=== PATIENT | female | born 1985 | race African-American/Black ===

== ENCOUNTER 2022-10-17 06:02 | Emergency (ER) | payer MEDICAID ==
[~2022-10-17] VITALS: Ht 165.1 cm; Wt 70.0 kg
[2022-10-17 06:40] LABS: BASOPHILS % 0.4 % (0.0-2.0); EOSINOPHILS % 0.5 % (0.0-5.0); HEMATOCRIT. 36.4 % (36.0-48.0); HEMOGLOBIN. 12.4 g/dL (12.0-16.0); LYMPHOCYTES % 13.9 % (20.0-50.0); MEAN CORPUSCULAR HEMOGLOBIN 33.2 pg (28.0-32.0); MEAN CORPUSCULAR VOLUME 97.8 fL (81.0-99.0); MEAN PLATELET VOLUME 9.3 fl (7.4-10.4); MONOCYTES % 4.7 % (2.0-8.0); NEUTROPHILS % 80.5 % (40.0-76.0); PLATELET 88 x1000/uL (130-400); RED BLOOD CELL COUNT 3.72 mill/uL (4.2-5.4); RED CELL DISTRIBUTION WIDTH 14.9 % (11.6-14.6)
[2022-10-17 06:53] LABS: CHLORIDE 94 mEq/L (98-107)
[2022-10-17 07:02] LABS: HCG SCREEN NEGATIVE
[2022-10-17] MEDS ORDERED: ONDANSETRON HCL 4MG/2ML INJ IV STA (07:24)
[2022-10-17] MEDS ORDERED: SODIUM CHLORIDE 0.9% 1,000 ML IV ONE (07:30)
[2022-10-17] MEDS ORDERED: MECLIZINE 25MG TABLET PO ONE (07:30)
[2022-10-17] MEDS ORDERED: KETOROLAC 30MG/ML VIAL IV ONE (10:30)
[2022-10-17] MEDS ORDERED: METOCLOPRAMIDE HCL 10MG/2ML VIAL IV ONE (10:30)
[2022-10-17 14:10] VITALS: BP 113/78
== END 2022-10-17 15:36 | disposition admitted as inpatient to this hospital (09) ==
LOC: ER 06:02 → CANBEDREQ 15:49
DX: R42 Dizziness and giddiness (principal); Z20.822 Contact with and (suspected) exposure to COVID-19
CPT/HCPCS: 36415; 70450; 71045; 80053; 81025; 83880; 84484; 84703; 85025; 87426; 93005; 96361; 96374; 96375; 99285; C9803; J1885; J2405; J2765; J7030; J8597; Z7610